=== PATIENT | male | born 1935 | race Caucasian/White ===

== ENCOUNTER 2018-08-12 10:10 | Emergency (ER) | payer MEDICARE ==
[~2018-08-12 10:10] MED LIST: ASPI-1197 PO; CETI10TA57 PO; DIGO250T84 PO; DILT180C3 PO; FINA5TAB41 PO; FLUT16H NASAL; GLYC10.7 IH; IPRA4AER IH; LOSA50TA25 PO; OMEP40CA37 PO; PRAV40TA3 PO; PRED5TAB PO
[2018-08-12 10:48] LABS: APPEARANCE,URINE Clear (CLEAR); BILIRUBIN,URINE Negative (NEGATIVE); COLOR,URINE Yellow (YELLOW); GLUCOSE, URINE (UA) Negative (NEGATIVE); KETONES,URINE Negative (NEGATIVE); LEUKOCYTE ESTERASE ,URINE Small (NEGATIVE); NITRATE,URINE Negative (NEGATIVE); OCCULT BLOOD,URINE Negative (NEGATIVE); PH,URINE 8.5 (5.0-8.0); PROTEIN,URINE Negative (NEGATIVE)
[2018-08-12 10:57] LABS: BASOPHILS % (AUTO) 0.1 % (0.0-5.0); EOSINOPHILS % (AUTO) 1.5 % (0.0-8.0); HEMATOCRIT 50.1 % (42-54); LYMPHOCYTES % (AUTO) 1.4 % (21.0-51.0); MEAN CORPUSCULAR HEMOGLOBIN 32.8 pg (27.0-33.0); MEAN CORPUSCULAR HGB CONC 33.3 g/dL (32.0-36.0); MEAN CORPUSCULAR VOLUME 98.7 fL (79-99); MONOCYTES % (AUTO) 3.7 % (3.0-13.0); NEUTROPHILS % (AUTO) 93.3 % (40.0-77.0); PLATELET COUNT (AUTO) 177 K/uL (130-400); RED BLOOD CELL COUNT(AUTO) 5.08 MIL/uL (4.50-6.20); WHITE BLOOD COUNT (AUTO) 8.1 K/uL (4.8-10.8)
[2018-08-12 11:10] LABS: CREATININE 1.1 mg/dL (0.5-1.5); POTASSIUM 3.8 mmol/L (3.5-5.1)
[2018-08-12 11:15] LABS: ALBUMIN 3.7 g/dL (3.5-5.0); TOTAL PROTEIN, SERUM 7.5 g/dL (6.0-8.3)
[2018-08-12 11:25] LABS: BACTERIA,URINE Rare /HPF (None Seen); RBC,URINE 0-1 /HPF (0-1); SQUAMOUS EPITHELIAL CELL,UR Rare /HPF (0-2)
[2018-08-12] MEDS ORDERED: SODIUM CHLORIDE 0.9% 1000ML 1,000 ML IV ONE (13:11)
[2018-08-12] MEDS ORDERED: ONDANSETRON HCL 4 MG/2 ML VIAL ONE (13:11)
[2018-08-12] MEDS ORDERED: METRONIDAZOLE 500 MG TABLET ONE (14:27)
== END 2018-08-12 14:52 | disposition home or self-care (01) ==
LOC: EDH 10:10
DX: K52.9 Noninfective gastroenteritis and colitis, unspecified (principal); I48.91 Unspecified atrial fibrillation; J44.9 Chronic obstructive pulmonary disease, unspecified; E78.5 Hyperlipidemia, unspecified; I10 Essential (primary) hypertension; Z87.442 Personal history of urinary calculi; Z88.2 Allergy status to sulfonamides; Z88.1 Allergy status to other antibiotic agents; Z87.891 Personal history of nicotine dependence
CPT/HCPCS: 36415; 74176; 80053; 81001; 82150; 83690; 85025; 87804 ×2; 87880; 93005; 96361; 96374; 99285; J2405; J7030